=== PATIENT | female | born 1965 | race African-American/Black ===

== ENCOUNTER 2017-01-23 09:04 | Emergency (ER) | payer OTHER ==
[2017-01-23 09:18] VITALS: BP 113/79; PULSE 98; TEMP 98.7; BMI 22.6
--- NOTE | 2017-01-23 11:02 | PDOC ---
History of Present Illness - General Chief Complaint: Eye Problem Stated Complaint: RT EYE PAIN Time Seen by Provider: 01/23/17 09:58 History Source: Patient Exam Limitations: No Limitations - History of Present Illness Initial Comments: 01/23/17 19:37 My chief complaint: Right eye redness with discomfort to right eye, with tearing History of present illness: Patient is a 52-year-old female with h/o anemia here today complaining of noticing a reddened area to her right medial eye a couple of days ago with tearing and a sensation as if something is in her eye. Patient denies any injury to her eye. Patient does not remember anything getting in her eye. Patient does not wear glasses patient denies any visual changes. patient has been wearing sunglasses that has helped relieve any discomfort to her eye. 01/23/17 19:39 01/23/17 19:42 Timing/Duration: getting worse Severity: mild Past History - Past Medical History Allergies/Adverse Reactions: Allergies Allergy/AdvReac Type Severity Reaction Status Date / Time clarithromycin [From Biaxin] Allergy racing Verified 01/23/17 09:13 heart Home Medications: Ambulatory Orders Ofloxacin 0.3% Ophth Soln [Ocuflox -] 2 drop OD QID #1 drops 01/23/17 Anemia: Yes - Immunization History Immunization Up to Date: Yes - Suicide/Smoking/Psychosocial Hx Smoking Status: No Smoking History: Never smoked Number of Cigarettes Smoked Daily: 0 Hx Alcohol Use: Yes Drug/Substance Use Hx: No Substance Use Type: None Review of Systems - Review of Systems Able to Perform ROS?: Yes Constitutional: No: Symptoms Reported HEENTM: Yes: Eye Pain (discomfort rt. eye ), Tearing, Other (redness of rt. medial eye with tearing ). No: Blurred Vision, Recent change in vision, Double Vision Respiratory: No: Symptoms reported Cardiac (ROS): No: Symptoms Reported ABD/GI: No: Symptoms Reported : No: Symptoms Reported Musculoskeletal: No: Symptoms Reported Integumentary: No: Symptoms Reported Neurological: No: Symptoms reported *Physical Exam - Vital Signs Last Vital Signs Temp Pulse Resp BP Pulse Ox 98.7 F 98 H 18 113/79 99 01/23/17 09:13 01/23/17 09:13 01/23/17 09:13 01/23/17 09:13 01/23/17 09:13 - Physical Exam General Appearance: Yes: Appropriately Dressed HEENT: positive: EOMI, CHECO, Other (rt. corneal abrasion at 3 o'clock with erythema or clear, conjunctiva rt. eye non injected, or erythematous, snellen 20 /20 both eyes, rt. eye and left eye ) Neck: negative: Lymphadenopathy (R), Lymphadenopathy (L) Respiratory/Chest: positive: Lungs Clear, Normal Breath Sounds. negative: Chest Tender, Respiratory Distress Cardiovascular: positive: Regular Rhythm, Regular Rate, S1, S2 Integumentary: positive: Normal Color Neurologic: positive: Alert, Responsive Procedures - Consent Consent obtained: From Patient - Additional Procedures Progress: 01/23/17 19:42 Tetracaine 0.3% one drop applied to right eye using ophthalmoscope able to appreciate a corneal abrasion at 3:00 right eye Medical Decision Making - Medical Decision Making 01/23/17 19:39 Patient is a 52-year-old female with no significant medical history here today complaining of noticing a reddened area to her right medial eye a couple of days ago with tearing and a sensation as if something is in her eye. Patient denies any injury to her eye. Patient does not remember anything getting in her eye. Patient does not wear glasses patient denies any visual changes. patient has been wearing sunglasses that has helped relieve any discomfort to her eye. 01/23/17 19:39 01/23/17 19:43 rt. eye corneal abrasion PLAN: ofloxacin 0.3% optho jodi 2 gtts rt.. eye qid x 5 days follow up with opthomologist 01/23/17 19:43 *DC/Admit/Observation/Transfer Diagnosis at time of Disposition: Corneal abrasion, right Qualifiers: Encounter type: initial encounter Qualified Code(s): S05.01XA - Injury of conjunctiva and corneal abrasion without foreign body, right eye, initial encounter - Prescriptions Prescriptions: Ofloxacin 0.3% Ophth Soln [Ocuflox -] 2 drop OD QID #1 drops - Referrals Referrals: Velasquez Tompkins MD [Staff Physician] - - Patient Instructions Additional Instructions: Follow up opthomologist as soon as possible Avoid rubbing your eye Return to emergency room if symptoms worsen Patient and mother voiced understanding of discharge instructions and all questions were answered And thank you for coming to [facility] emergency room for your medical needs today and is allowing us to serve you
== END 2017-01-23 11:06 | disposition home or self-care (01) ==
LOC: JER 09:04
DX: S05.01XA Injury of conjunctiva and corneal abrasion without foreign body, right eye, initial encounter (principal); X58.XXXA Exposure to other specified factors, initial encounter; Y93.89 Activity, other specified; Y92.89 Other specified places as the place of occurrence of the external cause
CPT/HCPCS: 99281-25